=== PATIENT | female | born 1950 | race Caucasian/White ===

== ENCOUNTER 2023-03-09 13:12 | Emergency (ER) | payer MEDICARE, BC, SELFPAY ==
[2023-03-09 13:30] VITALS: BP 147/64; PULSE 60; RESP 18; TEMP 37.4; O2SAT 97
--- NOTE | 2023-03-09 13:43 | ED.SKABFB ---
HPI - Skin/Abscess/Foreign Bdy General Chief complaint: Wound/Laceration Stated complaint: Wound Check Time Seen by Provider: 03/09/23 13:35 Source: patient and RN notes reviewed Mode of arrival: ambulatory Limitations: no limitations History of Present Illness HPI narrative: Patient presents today complaining of ruptured abscess and redness to the left lower abdomen area x1 week, worsening over the past 2 days. She has tried some Neosporin without relief. No history of abscesses, boils, staph infections. Related Data Home Medications Medication Instructions Recorded Confirmed aspirin 81 mg tablet 81 mg PO DAILY 03/09/23 03/09/23 atorvastatin 80 mg tablet 80 mg PO DAILY 03/09/23 03/09/23 letrozole 2.5 mg tablet 2.5 mg PO DIRECTED 03/09/23 03/09/23 metoprolol succinate 25 mg 25 mg PO DAILY 03/09/23 03/09/23 tablet,extended release 24 hr Allergies Allergy/AdvReac Type Severity Reaction Status Date / Time azithromycin Allergy Other Verified 03/09/23 13:36 bupropion [From Wellbutrin] Allergy Blurry Verified 03/09/23 13:36 Vision Penicillins Allergy Other Verified 03/09/23 13:36 Review of Systems Review of Systems: CONSTITUTIONAL: Denies body aches, fever, chills, or sweats. EYES: Denies visual changes, redness, or discharge. ENT: Denies rhinorrhea, congestion, sore throat, or otalgia. CARDIOVASCULAR: Denies chest pain, palpitations, or edema. RESPIRATORY: Denies cough or dyspnea. GASTROINTESTINAL: Denies abdominal pain, nausea, vomiting, or diarrhea. GENITOURINARY: Denies dysuria or hematuria. SKIN: Denies rash, itching. + wound to left lower abdomen MUSCULOSKELETAL: Denies back pain, joint pain, or myalgia. NEUROLOGIC: Denies headache, numbness, tingling, or weakness. PSYCH: Denies depression or anxiety. COUNTS INCLUDE 234 BEDS AT THE [facility] Past Medical History Medical History (Updated 03/09/23 @ 13:48 by Cesia Tellez, SECURITIES CLERK, ) Pre-diabetes Comments At time of signature, I have reviewed and agree with nursing past medical, surgical, social and family history unless otherwise noted. Please see nursing chart for further information. There is no relevant family history pertinent to the presenting complaint Exam Narrative: GENERAL: Well-appearing, well-nourished, and in no acute distress. HEAD: Normocephalic, atraumatic. EYES: EOMI. No redness or drainage. Conjunctivae normal. ENT: Mucous membranes pink and moist. NECK: Normal AROM. CHEST: No respiratory distress. EXTREMITIES: Normal range of motion. No edema. SKIN: Warm, dry. 1 cm round open wound to the left lower abdomen with surrounding erythema and induration measuring approximately 8 x 4 cm. Draining a scant amount of bloody drainage. NEURO: No focal deficits. Alert and oriented x3. Gait steady. PSYCH: Normal affect. No signs of depression or anxiety. Course Course Level of Care: Express Care Visit Vital Signs Vital signs: Vital Signs Temperature 99.3 F 03/09/23 13:30 Pulse Rate 60 03/09/23 13:30 Respiratory Rate 18 03/09/23 13:30 Blood Pressure 147/64 H 03/09/23 13:30 Pulse Oximetry 97 03/09/23 13:30 Oxygen Delivery Room Air 03/09/23 13:30 Temperature 99.3 F 03/09/23 13:30 Pulse Rate 60 03/09/23 13:30 Respiratory Rate 18 03/09/23 13:30 Blood Pressure 147/64 H 03/09/23 13:30 Pulse Oximetry 97 03/09/23 13:30 Oxygen Delivery Room Air 03/09/23 13:30 Reviewed MDM - Skin/Abscess/Foreign Bdy MDM Narrative Medical decision making narrative: Will treat patient's cellulitis and open wound with Keflex. Discussed skin care as well. Anticipatory guidance given Differential Diagnosis Differential diagnosis: Likely abscess of skin or subcutaneous tissue and cellulitis Critical Care Time Critical Care Time Critical Care Time: No Discharge Plan Discharge Clinical Impression: Cellulitis of left abdominal wall Patient Disposition: Home, Self-Care Condition: Stable Instructions: Antibi
== END 2023-03-09 13:53 | disposition home or self-care (01) ==
PROVIDERS: Emergency Provider Nurse Practitioner
DX: L03.311 Cellulitis of abdominal wall (principal); Z79.82 Long term (current) use of aspirin; Z79.899 Other long term (current) drug therapy
CPT/HCPCS: 99213; G0463